=== PATIENT | male | born 1945 | race African-American/Black ===

== ENCOUNTER 2016-11-09 21:56 | Emergency (ER) | payer MEDICARE, BC ==
[2016-11-09] MEDS ORDERED: predniSONE 20 MG TAB PO ONE (22:07)
[2016-11-09 22:27] VITALS: TEMP 97.4
[2016-11-09 23:41] VITALS: O2SAT 97
--- NOTE | 2016-11-09 23:41 | ED.PDOC ---
History of Present Illness - General Chief Complaint: Skin/Abrasion/Tear Stated Complaint: c/o left ankle swelling/pain bit by something Time Seen by Provider: 11/09/16 21:59 Source: patient Exam Limitations: no limitations - History of Present Illness Initial Comments: the patient is a 71-year-old -[place] male presenting to the emergency room secondary to a stinging sensation in his left lower extremity that occurred while he was on a driving lawnmower. The patient experienced a stinging sensation to the medial aspect of his left lower extremity. The risks and mild redness and swelling. I see no puncture wounds. He is concerned about a possible snakebite. No sleep was seen. There is mild erythema. He is neurovascularly preserved. This occurred approximately one half hour prior to arrival. Pain is fairly mild currently. Timing/Duration: 1/2 hour Severity: mild Improving Factors: nothing Worsening Factors: nothing Allergies/Adverse Reactions: Allergies NO KNOWN ALLERGY Allergy (Verified 11/09/16 22:27) Home Medications: Ambulatory Orders Atorvastatin Calcium DAILY 11/09/16 Cholecalciferol [Vitamin D] 1,000 unit PO DAILY 11/09/16 Clopidogrel Bisulfate [Plavix] 75 mg PO DAILY 11/09/16 Review of Systems - Review of Systems Constitutional: States: no symptoms reported EENTM: States: no symptoms reported Respiratory: States: no symptoms reported Cardiology: States: no symptoms reported Gastrointestinal/Abdominal: States: no symptoms reported Genitourinary: States: no symptoms reported Musculoskeletal: States: see HPI Skin: States: see HPI Neurological: States: no symptoms reported Endocrine: States: no symptoms reported All other Systems: No Change from Baseline Past Medical History (General) - Patient Medical History Hx Seizures: No Hx Stroke: Yes Hx Dementia: No Hx Asthma: No Hx of COPD: No Hx Cardiac Disorders: Yes Hx Congestive Heart Failure: No Hx Pacemaker: No Hx Hypertension: Yes Hx Thyroid Disease: No Hx Diabetes: Yes Hx Gastroesophageal Reflux: No Hx Renal Disease: No Hx Cancer: Yes - prostate Hx of HIV: No Hx Hepatitis C: No Hx MRSA: No Surgical History: appendectomy, other - Vaccination History Hx Tetanus, Diphtheria Vaccination: No Hx Influenza Vaccination: No Hx Pneumococcal Vaccination: No Immunizations Up to Date: No - Social History Hx Tobacco Use: Yes Hx Chewing Tobacco Use: No Hx Alcohol Use: No Hx Substance Use: No Hx Substance Use Treatment: No Hx Depression: No Feels Threatened In Home Enviroment: No Feels Threatened In a Relationship: No Hx Physical Abuse: No Hx Emotional Abuse: No Hx Suspected Abuse: No Family Medical History - Family History Mother Family History: Unknown Living Status: Physical Exam - Physical Exam General Appearance: Alert, Comfortable, No apparent distress Eye Exam: bilateral normal Ears, Nose, Throat: normal ENT inspection - the patient wears glasses, other - earing is chronically decreased bilaterally Neck: full range of motion, supple Respiratory: no respiratory distress, no accessory muscle use Cardiovascular/Chest: normal peripheral pulses, no edema Peripheral Pulses: radial,right: 2+, radial,left: 2+, dorsalis pedis,right: 2+, dorsalis pedis,left: 2+, posterior tibialis,right: 2+, posterior tibialis,left: 2+ Gastrointestinal/Abdominal: soft Rectal Exam: deferred Extremity: normal range of motion, no calf tenderness, normal capillary refill, swelling - mild to the left lower extremity just above the ankle Neurologic: chairman ceo II-XII nml as tested, no motor/sensory deficits, alert, normal mood/affect, oriented x 3 Skin Exam: normal color - with the exception of mild erythema around the inner left ankle Comments: Vital Signs - 8 hr 11/09/16 11/09/16 11/09/16 22:00 23:09 23:40 Temperature 97.4 F L Pulse Rate [ 61 70 72 monitor] Respiratory 18 18 16 Rate Blood Pressure 166/75 115/61 105/56 [Right Arm] O2 Sat by Pulse 97 99 97 Oximetry Progress - Progress Progress: 11/09/16 23:42 the patient is a 71-year-old -[place] male presenting with some form of a sting to his left lower extremity. This does not appear to be a snake bite. he has been monitored for several hours with no negative deterioration. He did receive 1 dose of prednisone to negate any allergic type reaction. ER warnings were given for any significant worsening. No evidence of any systemic reaction. Departure - Departure Clinical Impression: Insect bites Disposition: Discharge to Home or Self Care Condition: Fair Departure Forms: ED Discharge - Pt. Copy, Patient Portal Self Enrollment Diet: regular diet Activity: increase activity as tolerated Referrals: Toy Alvarez MD [Primary Care Provider] - 1-2 Weeks Home Medications: Ambulatory Orders Atorvastatin Calcium DAILY 11/09/16 Cholecalciferol [Vitamin D] 1,000 unit PO DAILY 11/09/16 Clopidogrel Bisulfate [Plavix] 75 mg PO DAILY 11/09/16 Additional Instructions: the patient is a 71-year-old -[place] male presenting with some form of a sting to his left lower extremity. This does not appear to be a snake bite. he has been monitored for several hours with no negative deterioration. He did receive 1 dose of prednisone to negate any allergic type reaction. ER warnings were given for any significant worsening. No evidence of any systemic reaction.
[2016-11-09 23:54] VITALS: BP 118/68
== END 2016-11-09 23:54 | disposition home or self-care (01) ==
LOC: ER 21:56
DX: S90.562A Insect bite (nonvenomous), left ankle, initial encounter (principal); I10 Essential (primary) hypertension; E11.9 Type 2 diabetes mellitus without complications; Z85.46 Personal history of malignant neoplasm of prostate; Z79.02 Long term (current) use of antithrombotics/antiplatelets; Z87.891 Personal history of nicotine dependence; W57.XXXA Bitten or stung by nonvenomous insect and other nonvenomous arthropods, initial encounter; Y93.H9 Activity, other involving exterior property and land maintenance, building and construction; Y92.096 Garden or yard of other non-institutional residence as the place of occurrence of the external cause
CPT/HCPCS: 36416; 82948; J7512

== ENCOUNTER → 2017-08-05 | Outpatient (CLI) | payer MEDICARE | END | disposition home or self-care (01) | LOC: GMAB 17:21 | PROVIDERS: ATTEND Family Medicine | DX: R25.2 Cramp and spasm (principal) ==

== ENCOUNTER → 2018-07-06 | Outpatient (CLI) | payer MEDICARE ==
[~2018-07-06] MED LIST: IPRATROPIUM/ALBUTEROL 3 ML VIAL NEB ONE
== END ==
LOC: RESP 14:01
PROVIDERS: ATTEND Family Medicine
DX: J44.9 Chronic obstructive pulmonary disease, unspecified (principal)
CPT/HCPCS: 94060; J7620

== ENCOUNTER → 2018-12-23 | Outpatient (CLI) | payer MEDICARE ==
--- NOTE | 2018-12-23 15:07 | RAD ---
4 radiograph left knee Indication: PAIN IN LEFT KNEE Comparison: None. Impression: Mild tricompartment joint space narrowing, most pronounced at the medial compartment. No acute fracture or malalignment. Prominent spurring tibial tubercle at the patellar tendon insertion. Mild enthesophyte reformation quadriceps tendon insertion. Minimal suprapatellar joint fluid suspected. Electronically signed by: Franko Shay MD 12/23/2018 3:05 PM CDT
--- NOTE | 2018-12-23 15:27 | RAD ---
EXAM DESCRIPTION: Knee,Right Complete CLINICAL HISTORY: 73 years, Male, M25.561/M25.551. Pain. COMPARISON: 07/05/2018 TECHNIQUE: Four views of the right knee. FINDINGS: No acute displaced fracture or dislocation is seen. The osseous alignment of the knee is intact. Mild joint space narrowing about the medial knee compartment. Mild degenerative hypertrophy of the tibial spine. Possible trace knee joint effusion. Redemonstration of chronic bony fragmentation at the distal patellar tendon and tibial tuberosity. Pretibial soft tissue thickening/swelling at this level may be more pronounced compared to prior examination. IMPRESSION: 1. No acute osseous abnormality. 2. Soft tissue swelling anterior to the right tibial tuberosity chronic bony fragmentation may represent mild bursitis. Electronically signed by: Sarwat Rodríguez DO 12/23/2018 3:25 PM CDT
--- NOTE | 2018-12-24 15:50 | RAD ---
EXAM DESCRIPTION: Pelvis CLINICAL HISTORY: 73 years Male, RT HIP PAIN COMPARISON: None. FINDINGS/IMPRESSION: Single frontal view of the pelvis demonstrate no acute displaced fracture or dislocation. The osseous alignment is intact without hip dislocation. Mild to moderate bilateral hip osteoarthrosis with joint space narrowing, subchondral sclerosis and marginal osteophyte formation. Mild degenerative changes of the bilateral sacroiliac joints and lumbosacral junction. Surgical clips overlies the pelvis. Electronically signed by: Sarwat Rodríguez DO 12/24/2018 3:48 PM CDT
== END ==
LOC: RAD 08:12
PROVIDERS: ATTEND Orthopaedic Surgery
DX: M17.12 Unilateral primary osteoarthritis, left knee (principal); M16.0 Bilateral primary osteoarthritis of hip; M70.51 Other bursitis of knee, right knee; M79.9 Soft tissue disorder, unspecified

== ENCOUNTER → 2019-06-10 | Outpatient (CLI) | payer MEDICARE, OTHER ==
--- NOTE | 2019-06-11 16:16 | RAD ---
EXAM DESCRIPTION: Pelvis: CR/DR/XR CLINICAL HISTORY: PAIN IN RIGHT AND LEFT HIP COMPARISON: One view AP pelvis December 2018. TECHNIQUE: One view AP Pelvis FINDINGS: No fracture dislocation. Overall bone density is decreased. Bilateral narrowing superior hip joints with hypertrophic acetabular margins superior and inferior. Also hypertrophy of the inferior articular margins of the femoral heads. Narrowing of the inferior medial joint spaces more on the right. Sclerotic line at the subcapital right femoral neck not as well seen on the prior study. Enthesophytes on the initial tuberosities and iliac crests. Arthrosis pubic symphysis and SI joints. Numerous surgical clips bilateral pelvic floor. Spondylosis L5-S1 disc space. No abnormal radiodense objects in the soft tissues or joint spaces. IMPRESSION: Decreased bone density. Arthrosis bilateral hip joints more on the right. Subtle sclerotic line at the subcapital right femoral neck as well seen on the prior study. No displaced fracture. No dislocation. Evaluation for fracture is limited given the degree of bone density loss. If high clinical concern for acute fracture, correlation with MRI recommended given its greater sensitivity in the patient with significant bone density loss. If the patient cannot tolerate MRI imaging or more urgent imaging is required, CT could be performed, however it is less sensitive in the patient with severe bone density loss, when compared to MRI. Electronically signed by: Mark Willis MD 06/11/2019 4:15 PM [facility]
--- NOTE | 2019-06-11 17:34 | RAD ---
EXAM DESCRIPTION: Knee,Left Complete (accession [id number]), Knee,Right Complete (accession [id number]): CR/DR/XR. CLINICAL HISTORY: 73 years MalePAIN IN LEFT KNEE COMPARISON: AP pelvis on this visit. TECHNIQUE: 4 views AP lateral oblique and 45 degree AP, all standing and patella sunrise view bilateral knees. FINDINGS: Right knee: Medial compartment narrowing. Normal bone density. Bilateral tibial spine spurs. No fracture. Patellofemoral medial/lateral compartment is unremarkable with minimal suprapatellar effusion. Hypertrophy of the tibial tuberosity with calcifications or bony fragments in the distal patellar tendon which is thickened with anterior soft tissue swelling. No fracture. Left knee: Normal bone density. Medial compartment narrowing. Patellofemoral compartment unremarkable. No effusion. Minimal hypertrophy of the tibial tuberosity with minimal soft tissue swelling anterior. No abnormal radiodense objects in the soft tissues. Posterior convexity of the proximal left fibular shaft with minimal cortical thickening on the medial aspect. IMPRESSION: 1. Hypertrophic right tibial tuberosity with calcification and thickening of the distal right patellar tendon is most likely old [place]-Schlatter's disease. Minimal narrowing of the right medial compartment. Minimal right suprapatellar soft tissue swelling. 2. Hypertrophic left tibial tuberosity with minimal soft tissue swelling anterior to the tuberosity. No fragments. Minimal deformity of the proximal shaft of the left fibula with thickening of the medial cortex may represent a healing stress fracture. Medial/lateral compartments are symmetric. Electronically signed by: Mark Willis MD 06/11/2019 5:32 PM [facility]
--- NOTE | 2019-06-11 17:34 | RAD ---
EXAM DESCRIPTION: Knee,Left Complete (accession [id number]), Knee,Right Complete (accession [id number]): CR/DR/XR. CLINICAL HISTORY: 73 years MalePAIN IN LEFT KNEE COMPARISON: AP pelvis on this visit. TECHNIQUE: 4 views AP lateral oblique and 45 degree AP, all standing and patella sunrise view bilateral knees. FINDINGS: Right knee: Medial compartment narrowing. Normal bone density. Bilateral tibial spine spurs. No fracture. Patellofemoral medial/lateral compartment is unremarkable with minimal suprapatellar effusion. Hypertrophy of the tibial tuberosity with calcifications or bony fragments in the distal patellar tendon which is thickened with anterior soft tissue swelling. No fracture. Left knee: Normal bone density. Medial compartment narrowing. Patellofemoral compartment unremarkable. No effusion. Minimal hypertrophy of the tibial tuberosity with minimal soft tissue swelling anterior. No abnormal radiodense objects in the soft tissues. Posterior convexity of the proximal left fibular shaft with minimal cortical thickening on the medial aspect. IMPRESSION: 1. Hypertrophic right tibial tuberosity with calcification and thickening of the distal right patellar tendon is most likely old [place]-Schlatter's disease. Minimal narrowing of the right medial compartment. Minimal right suprapatellar soft tissue swelling. 2. Hypertrophic left tibial tuberosity with minimal soft tissue swelling anterior to the tuberosity. No fragments. Minimal deformity of the proximal shaft of the left fibula with thickening of the medial cortex may represent a healing stress fracture. Medial/lateral compartments are symmetric. Electronically signed by: Mark Willis MD 06/11/2019 5:32 PM [facility]
== END ==
LOC: RAD 09:09
PROVIDERS: ATTEND Orthopaedic Surgery
DX: M16.0 Bilateral primary osteoarthritis of hip (principal); M84.851 Other disorders of continuity of bone, right pelvic region and thigh; M85.9 Disorder of bone density and structure, unspecified; M89.361 Hypertrophy of bone, right tibia; M89.362 Hypertrophy of bone, left tibia; M25.861 Other specified joint disorders, right knee; M67.863 Other specified disorders of tendon, right knee; M21.962 Unspecified acquired deformity of left lower leg; M79.9 Soft tissue disorder, unspecified

== ENCOUNTER → 2019-10-12 | Outpatient (CLI) | payer OTHER, MEDICARE | LOC: GMAE 14:20 | PROVIDERS: ATTEND Family Medicine | DX: Z12.5 Encounter for screening for malignant neoplasm of prostate (principal); G24.8 Other dystonia; I10 Essential (primary) hypertension | CPT/HCPCS: 83735; 84443; G0103 ==